=== PATIENT | female | born 1940 | race Caucasian/White ===

== ENCOUNTER 2025-03-19 10:13 | Day surgery (SDC) | payer MEDICARE ==
[~2025-03-19] VITALS: Ht 157.5 cm; Wt 50.3 kg
[~2025-03-19 10:13] MED LIST: ALBU18HF2 INH; APIX2.5T PO; ASPI-1265 PO; ATOR-411 PO; BUDE10.22 INH; EMPA10TA PO; FERR-106 PO; GABA300C PO; IPRA3AMP9 NEB; MIRT-87 PO; OMEP40CA21 PO; PRED10TA PO; SERT-434 PO; TIOT4MIS5 INH; simethicone 40mg/0.6ml oral drops 15ml ONE
[2025-03-19] MEDS: ringers solution, lacted 1,000 ML IV SCH (10:56)
[2025-03-19 11:00] VITALS: BP 162/69; PULSE 93; RESP 16; TEMP 98.1; O2SAT 95
[2025-03-19] MEDS ORDERED: fentaNYL/PF 50MCG/1 ML 2ML syringe ONE (11:51)
[2025-03-19] MEDS ORDERED: LIDOcaine 2% (20mg/ml) 5ml vial ONE ×2 (12:00→12:01)
[2025-03-19] MEDS ORDERED: propofol inj 20 ML IV ONE (12:01)
[2025-03-19 12:27] VITALS: BP 140/64; PULSE 86; RESP 16; O2SAT 98
[2025-03-19 12:40] VITALS: BP 142/59; PULSE 83; RESP 12; O2SAT 100
[2025-03-19 12:50] VITALS: BP 164/67; PULSE 81; RESP 12; O2SAT 100
[2025-03-19 13:00] VITALS: BP 170/71; PULSE 80; RESP 12; O2SAT 100
[2025-03-19 13:10] VITALS: BP 161/76; PULSE 82; RESP 12; O2SAT 100
== END 2025-03-19 13:47 | disposition home or self-care (01) ==
LOC: PAS 10:13
PROVIDERS: ATTEND Internal Medicine Gastroenterology
DX: K52.9 Noninfective gastroenteritis and colitis, unspecified (principal); K63.5 Polyp of colon; K21.00 Gastro-esophageal reflux disease with esophagitis, without bleeding; K22.70 Barrett's esophagus without dysplasia; K31.89 Other diseases of stomach and duodenum; F17.210 Nicotine dependence, cigarettes, uncomplicated; F32.A Depression, unspecified; J44.9 Chronic obstructive pulmonary disease, unspecified; I10 Essential (primary) hypertension; K57.30 Diverticulosis of large intestine without perforation or abscess without bleeding; K30 Functional dyspepsia; R10.33 Periumbilical pain; Z98.890 Other specified postprocedural states; Z88.5 Allergy status to narcotic agent
CPT/HCPCS: 43239; 45380; 45385; 82948; 88305; 88342; A4615; A4620; J2003; J2704; J3010; J7120; Z7512; Z7610